=== PATIENT | male | born 1950 | race Caucasian/White ===

== ENCOUNTER 2016-10-08 12:45 | Inpatient (IN) | payer MEDICARE ==
[~2016-10-08] VITALS: Ht 170.2 cm; Wt 71.2 kg
[~2016-10-08 12:45] MED LIST: ALBUTEROL0.63 MG/3 INH; ALDACTONE100 MG PO; EMBEDA ER 20-01 EACH PO; FOSAMAX70 MG PO; LACTULOSE10 GM/15 M PO; LASIX40 MG PO; LEVEMIR100 UNIT/1 SQ; MAGNESIUM GLUC500 GM PO; MELOXICAM15 MG PO; MOBIC15 MG PO; MULTIVITAMINS1 EAC2 PO; NADOLOL20 MG PO; NEURONTIN 300300 MG PO; OXYCODONE HCL10 MG PO; PYRIDOXINE HCL50 MG PO; TENORMIN 25 MG25 MG PO; THERAPEUTIC M1 EAC2 PO; THIAMINE HCL50 MG PO; VITAMIN D32000 UNIT PO; XIFAXAN 550 MG550 MG PO; XIFAXAN550 MG PO
[2016-10-08 15:25] LABS: HEMOGLOBIN 14.4 gm/dl (14.0-17.5); RED BLOOD COUNT 4.41 M/UL (4.20-5.50); WHITE BLOOD COUNT 6.1 K/UL (4.5-11.0)
[2016-10-08 15:35] LABS: BUN/CREATININE RATIO 23 (0-10)
[2016-10-09 05:30] LABS: HEMOGLOBIN 12.5 gm/dl (14.0-17.5); WHITE BLOOD COUNT 5.7 K/UL (4.5-11.0)
[2016-10-09 05:32] LABS: RED BLOOD COUNT 3.89 M/UL (4.20-5.50)
[2016-10-09 05:41] LABS: BUN/CREATININE RATIO 34 (0-10)
[2016-10-09 15:01] LABS: TOTAL PROTEIN, BODY FLUID 1.3 gm/dL
[2016-10-09 15:02] LABS: LDH, BODY FLUID 71 U/L
[2016-10-09 15:15] LABS: BODY FLUID SOURCE PLEURAL
[2016-10-10 07:20] LABS: HEMOGLOBIN 14.2 gm/dl (14.0-17.5)
[2016-10-10 07:25] LABS: RED BLOOD COUNT 4.38 M/UL (4.20-5.50); WHITE BLOOD COUNT 7.3 K/UL (4.5-11.0)
[2016-10-10 07:35] LABS: BUN/CREATININE RATIO 40 (0-10)
[2016-10-11 06:55] LABS: HEMOGLOBIN 14.3 gm/dl (14.0-17.5); RED BLOOD COUNT 4.44 M/UL (4.20-5.50); WHITE BLOOD COUNT 6.9 K/UL (4.5-11.0)
[2016-10-11 07:26] LABS: BUN/CREATININE RATIO 28 (0-10)
[2016-10-11] MEDS ORDERED: NOVOLOG 10100 UNITS1 SQ (17:31)
== END 2016-10-11 19:00 | disposition home or self-care (01) | DRG 186 ==
LOC: ER1 12:45 → M/S 20:28 → ZEROF 20:28 → M/S 10-09 00:03
PROVIDERS: Internal Medicine Infectious Disease; Student in an Organized Health Care Education/Training Program; ADMIT Internal Medicine
PROC: 0W993ZZ Drainage of Right Pleural Cavity, Percutaneous Approach (ICD-10-PCS; principal; 2016-10-09)
DX: J90 Pleural effusion, not elsewhere classified (principal); K72.00 Acute and subacute hepatic failure without coma; J94.8 Other specified pleural conditions; J98.11 Atelectasis; E87.1 Hypo-osmolality and hyponatremia; E87.2 Acidosis; K74.69 Other cirrhosis of liver; Z76.82 Awaiting organ transplant status; D69.59 Other secondary thrombocytopenia; E11.65 Type 2 diabetes mellitus with hyperglycemia; T50.2X5A Adverse effect of carbonic-anhydrase inhibitors, benzothiadiazides and other diuretics, initial encounter; K57.90 Diverticulosis of intestine, part unspecified, without perforation or abscess without bleeding; R68.0 Hypothermia, not associated with low environmental temperature; M51.36 Other intervertebral disc degeneration, lumbar region; G89.4 Chronic pain syndrome; Z91.14 Patient's other noncompliance with medication regimen; Z91.19 Patient's noncompliance with other medical treatment and regimen; Z79.4 Long term (current) use of insulin; Z79.891 Long term (current) use of opiate analgesic; Z79.899 Other long term (current) drug therapy; Z90.49 Acquired absence of other specified parts of digestive tract; Z98.890 Other specified postprocedural states; Z82.49 Family history of ischemic heart disease and other diseases of the circulatory system
CPT/HCPCS: 36415; 70450; 71010; 71250; 80053; 81001; 82140; 82150; 82272; 82550; 82553; 82945; 82962; 83036; 83605; 83615; 83874; 83986; 84075; 84157; 84484; 85025; 85027; 85610; 85730; 87040; 87070; 87077; 87186; 87205; 89051; 93005; 94640; 94664; 99285; J3370; J7050; J7070

== ENCOUNTER 2016-10-17 00:10 | Emergency (ER) | payer MEDICARE ==
[~2016-10-17 00:10] MED LIST changes: +NOVOLOG 10100 UNITS1 SQ
[2016-10-17 01:51] LABS: HEMOGLOBIN 13.1 gm/dl (14.0-17.5); RED BLOOD COUNT 4.03 M/UL (4.20-5.50); WHITE BLOOD COUNT 8.8 K/UL (4.5-11.0)
[2016-10-17 02:17] LABS: BUN/CREATININE RATIO 30 (0-10)
== END 2016-10-17 05:20 | disposition home or self-care (01) ==
LOC: ER1 00:10
PROVIDERS: Physician Assistant
DX: K72.90 Hepatic failure, unspecified without coma (principal); K74.60 Unspecified cirrhosis of liver; J90 Pleural effusion, not elsewhere classified; E11.9 Type 2 diabetes mellitus without complications; Z91.14 Patient's other noncompliance with medication regimen; Z79.4 Long term (current) use of insulin; Z79.899 Other long term (current) drug therapy
CPT/HCPCS: 36415; 70450; 71010; 80053; 81001; 82140; 82550; 82553; 83605; 83874; 84484; 85025; 87040; 87086; 93005; 99285

== ENCOUNTER 2016-12-07 10:44 | Emergency (ER) | payer MEDICARE ==
[2016-12-07 12:26] LABS: HEMOGLOBIN 11.9 gm/dl (14.0-17.5); RED BLOOD COUNT 3.76 M/UL (4.20-5.50); WHITE BLOOD COUNT 5.4 K/UL (4.5-11.0)
[2016-12-07 12:41] LABS: BUN/CREATININE RATIO 26 (0-10)
[2016-12-07 14:02] LABS: BODY FLUID SOURCE PERITONEAL
== END 2016-12-07 16:20 | disposition home or self-care (01) ==
LOC: ER1 10:44
PROVIDERS: Emergency Medicine
DX: R18.8 Other ascites (principal); D64.9 Anemia, unspecified; D69.6 Thrombocytopenia, unspecified; F17.200 Nicotine dependence, unspecified, uncomplicated; E11.9 Type 2 diabetes mellitus without complications; Z90.49 Acquired absence of other specified parts of digestive tract; Z94.4 Liver transplant status; Z87.19 Personal history of other diseases of the digestive system; Z88.5 Allergy status to narcotic agent
CPT/HCPCS: 36415; 80053; 81001; 82150; 82945; 83615; 83690; 83986; 84075; 84157; 85025; 85610; 85730; 87070; 87205; 89051; 96374; 96375; 96376; 99284; J2270; J2405

== ENCOUNTER → 2016-12-21 | Outpatient (CLI) | payer MEDICARE | LOC: OPSV 10:00 | DX: R18.8 Other ascites (principal) | CPT/HCPCS: G0463 ==

== ENCOUNTER → 2017-01-06 | Outpatient (CLI) | payer MEDICARE ==
[~2017-01-06] VITALS: Ht 170.2 cm; Wt 76.7 kg
[2017-01-06 11:43] LABS: HEMOGLOBIN 12.4 gm/dl (14.0-17.5); RED BLOOD COUNT 3.98 M/UL (4.20-5.50); WHITE BLOOD COUNT 4.7 K/UL (4.5-11.0)
[2017-01-06 11:52] LABS: BUN/CREATININE RATIO 19 (0-10)
== END ==
LOC: OPSV 10:14
PROVIDERS: Internal Medicine Gastroenterology
DX: Z01.818 Encounter for other preprocedural examination (principal); K74.69 Other cirrhosis of liver; R18.8 Other ascites
CPT/HCPCS: 36415; 80053; 85027; 85610; 96365; P9047